=== PATIENT | female | born 1995 | race Caucasian/White ===

== ENCOUNTER 2022-05-25 | Inpatient (IN) | payer OTHER ==
[~2022-05-25] VITALS: Ht 172.7 cm; Wt 95.3 kg
--- NOTE | 2022-05-25 09:52 | PR ---
[facility] [address], [place] [address] Signed Progress Notes IP Datetime Report Generated by CPN: 05/25/2022 09:52 PROGRESS NOTES: [id number] Impression: Normal Progression of Labor; Reassuring Heart Rate Procedures: Artificial ROM Plan: Anticipate Vaginal Delivery Informed Consent Obtain: Vaginal Delivery VITAL SIGNS: [id number] Vital Signs: Reviewed; Within Normal Limits EXAM: [id number] Dilatation: 10.0 Effacement: 100 Station: 0 Contractions: q 2-3 min MEMBRANES: [id number] Comments: Pt seen and examined. Complete +1 station and feeling urge to push. Discussed anticipated course of labor / delivery. All questions answered FETUS A: [id number] FHR Baseline: 130 Variability: Moderate 6-25bpm Accelerations: 15X15 Decelerations: None FHR Category: Category I Presentation: Vertex Comments on Fetus A: No evidence of metabolic acidosis FETUS B: [id number] Signing Physician: Arsh Mcdermott DO Copies: ~ *Electronically Signed* 05/25/22 0952 ARSH MCDERMOTT (FATIMAH) DO PATIENT NAME: JOELSHAYNE PROGRESS NOTE DATE OF : [birth year] PHYSICIAN: ARSH MCDERMOTT) DO RPT #: [id number] REPORT IS CONFIDENTIAL AND NOT TO BE RELEASED WITHOUT AUTHORIZATION
--- NOTE | 2022-05-27 08:53 | PR ---
[facility] [address] [facility] [place], [place] [address] Signed PP Progress Notes Datetime Report Generated by CPN: 05/27/2022 08:53 SUBJECTIVE: [id number] Pain: Within Normal Limits Nausea/Vomiting: Denies Flatus: Yes Vital Signs: [id number] Vital Signs: Reviewed; Within Normal Limits EXAM: Ongoing Abdomen/Uterus: Normal Lochia: Normal Vulva/Perineum: Abnormal Breasts: Not Done Extremities: Normal Progress: Normal IMPRESSION/PLAN/PROCEDURES: [id number] Impression: Normal Progression Plan: Discharge Procedures: None Progress Notes: 26 yo PPD 2. Doing well. Denies MAXWELL, CP, SOB, F/C , N/V, RUQ pain, changes in vision. Normal vaginal bleeding. Ambulating, voiding on her own, tolerating regeular diet, pain well controlled. Nursing states patient is having some depression-like symptoms post . Plan: D/C home. Follow up next week in clinic for follow up exam and to check in on mood. Signing Physician: Erica Doyle MD Copies: ~ *Electronically Signed* 05/27/22 0853 ERICA DOYLE MD PATIENT NAME: SHAYNE MALDONADO PROGRESS NOTE DATE OF : 97 PHYSICIAN: ERICA DOYLE MD RPT #: [id number] REPORT IS CONFIDENTIAL AND NOT TO BE RELEASED WITHOUT AUTHORIZATION
== END 2022-05-27 13:15 | disposition home or self-care (01) | DRG 807 ==
LOC: FBC
PROVIDERS: ADMIT Obstetrics & Gynecology; ATTEND Obstetrics & Gynecology
PROC: 10E0XZZ Delivery of Products of Conception, External Approach (ICD-10-PCS; principal; 2022-05-25)
PROC: 0KQM0ZZ Repair Perineum Muscle, Open Approach (ICD-10-PCS; 2022-05-25)
PROC: 10907ZC Drainage of Amniotic Fluid, Therapeutic from Products of Conception, Via Natural or Artificial Opening (ICD-10-PCS; 2022-05-25)
PROC: 00HU33Z Insertion of Infusion Device into Spinal Canal, Percutaneous Approach (ICD-10-PCS; 2022-05-25)
PROC: 3E0R3BZ Introduction of Anesthetic Agent into Spinal Canal, Percutaneous Approach (ICD-10-PCS; 2022-05-25)
DX: O99.824 Streptococcus B carrier state complicating childbirth (principal); Z37.0 Single live birth; O48.0 Post-term pregnancy; Z3A.40 40 weeks gestation of pregnancy; O70.1 Second degree perineal laceration during delivery; Z20.822 Contact with and (suspected) exposure to COVID-19; Z67.10 Type A blood, Rh positive
CPT/HCPCS: 36415; 85027; 86850; 86900; 86901; 90707; A9270; J2405; J2540; J2590; J2795; J7121; U0003